=== PATIENT | male | born 1950 | race Caucasian/White ===

== ENCOUNTER → 2018-01-26 11:48 | Outpatient (CLI) | payer OTHER, MEDICARE, SELFPAY ==
[2018-01-26 14:17] LABS: AST(SGOT) 70 U/L (15-37); Alanine Aminotransfer ALT/SGPT 110 U/L (16-61); Anion Gap 5 (5-15); BUN 18 mg/dL (7-18); BUN/Creat Ratio 18.8 RATIO (10-20); Calcium,Total 9.3 mg/dL (8.5-10.1); Chloride 106 mmol/L (98-107); Cholesterol 176 mg/dL (200); Creatinine, Serum 0.96 mg/dL (0.70-1.30); EST Glomerular Filtration Rate 83 mL/min (>60); Est Glom Filt Rate - Afr Amer 100 mL/min (>60); Glucose 104 mg/dL (74-106); High Density Lipoprotein 32 mg/dL; Potassium 4.4 mmol/L (3.5-5.1); Sodium Level 140 mmol/L (136-145); Triglycerides 166 mg/dL; Very Low Density Lipoprotein 33 mg/dL (5-40)
== END ==
PROVIDERS: Family Provider Family Medicine; PCP Family Medicine; Visit Provider Family Medicine
DX: I10 Essential (primary) hypertension (principal); E78.5 Hyperlipidemia, unspecified
CPT/HCPCS: 36415; 80048; 80061; 84450; 84460

== ENCOUNTER → 2018-02-07 12:28 | Outpatient (CLI) | payer MEDICARE, OTHER, SELFPAY | PROVIDERS: Family Provider Family Medicine; PCP Family Medicine; Visit Provider Urology | DX: Z12.5 Encounter for screening for malignant neoplasm of prostate (principal) | CPT/HCPCS: 36415; 84153; G0103 ==

== ENCOUNTER → 2018-02-28 11:37 | Outpatient (CLI) | payer MEDICARE, OTHER, SELFPAY ==
[2018-02-28 12:40] LABS: AST(SGOT) 73 U/L (15-37); Alanine Aminotransfer ALT/SGPT 107 U/L (16-61); Albumin, Serum 3.7 g/dL (3.2-5.0); Alkaline Phosphatase 54 U/L (45-117); Anion Gap 7 (5-15); BUN 12 mg/dL (7-18); Bilirubin, Direct 0.17 mg/dL (0.00-0.30); Calcium,Total 9.2 mg/dL (8.5-10.1); Chloride 107 mmol/L (98-107); Cholesterol 237 mg/dL (200); EST Glomerular Filtration Rate 79 mL/min (>60); Est Glom Filt Rate - Afr Amer 95 mL/min (>60); Globulin 4.2 g/dL (2.2-4.2); Glucose 92 mg/dL (74-106); High Density Lipoprotein 30 mg/dL; Potassium 4.4 mmol/L (3.5-5.1); Protein, Total 7.9 g/dL (6.4-8.2); Sodium Level 141 mmol/L (136-145); Triglycerides 265 mg/dL; Very Low Density Lipoprotein 53 mg/dL (5-40)
== END ==
PROVIDERS: Family Provider Family Medicine; PCP Family Medicine; Visit Provider Family Medicine
DX: I10 Essential (primary) hypertension (principal); E78.5 Hyperlipidemia, unspecified
CPT/HCPCS: 36415; 80048; 80061; 80076

== ENCOUNTER → 2018-03-26 14:55 | Outpatient (CLI) | payer MEDICARE, OTHER, SELFPAY ==
[2018-03-26 16:05] LABS: AST(SGOT) 63 U/L (15-37); Alanine Aminotransfer ALT/SGPT 86 U/L (16-61); Cholesterol 176 mg/dL (200); High Density Lipoprotein 33 mg/dL; Triglycerides 207 mg/dL; Very Low Density Lipoprotein 41 mg/dL (5-40)
== END ==
PROVIDERS: Family Provider Family Medicine; PCP Family Medicine; Visit Provider Family Medicine
DX: E78.00 Pure hypercholesterolemia, unspecified (principal)
CPT/HCPCS: 36415; 80061; 84450; 84460

== ENCOUNTER → 2018-06-25 09:26 | Outpatient (CLI) | payer MEDICARE, OTHER, SELFPAY ==
[2018-06-25 10:51] LABS: AST(SGOT) 41 U/L (15-37); Alanine Aminotransfer ALT/SGPT 77 U/L (16-61); Cholesterol 169 mg/dL (200); High Density Lipoprotein 32 mg/dL; Triglycerides 252 mg/dL; Very Low Density Lipoprotein 50 mg/dL (5-40)
--- OUTSIDE RECORDS SUMMARY | 2018-09-26 21:43 | XMS RPT_ITS ---
:1950 Author Organization [facility] Care Team Providers Name Role Phone Skip Willis Attending Unavailable Jolliff, Estefania Referring Unavailable Jolliff, Estefania Primary Care Unavailable Jolliff, Estefania Attending Unavailable Jolliff, Estefania Primary Care Unavailable Jolliff, Estefania Referring Unavailable Jolliff, Estefania Attending Unavailable Jolliff, Etsefania Primary Care Unavailable Osmel Ford Attending Unavailable Osmel Ford Referring Unavailable Jolliff, Estefania Primary Care Unavailable Jolliff, Estefania Attending Unavailable Jolliff, Estefania Primary Care Unavailable Jolliff, Estefania Attending Unavailable Jolliff, Estefania Referring Unavailable Jolliff, Estefania Primary Care Unavailable Luciana Patterson Attending Unavailable Jolliff, Estefania Attending Unavailable Jolliff, Estefania Primary Care Unavailable PROBLEMS PROBLEMS DATE TYPE CONDITION / CODE ATTENDING STATUS SOURCE 02/20/2018 Unknown I10 - Essential Estefania Santana Active [facility] (primary) [facility]ly [facility] hypertension / Hospital I10(ICD-10) Repository PROCEDURES PROCEDURES No Procedure Records FoundRESULTS RESULTS HIP, UNI W/ PELVIS Observed: 07/31/2018 Status: F Source: [place] 2-3 VIEWS 2:05 PM [facility] [place] [facility] Imaging Services [address] [place] [address] HIP, UNI W/ Pelvis 2-3 Views MR#: [id number] Acct: [id number] Name: KATHLEEN ANGELA Rep #: [id number] : 1950 M 68 From: Sekou Mendoza MD PCP: Estefania Santana MD Status: REG CLI Study: HIP, UNI W/ Pelvis 2-3 Views Date of Exam: 07/31/18 Exam# [id number] Ordering Dr: Estefania Santana MD STUDY: X-RAY - LEFT HIP REASON FOR EXAM: Male, 68 years old. Left hip pain. TECHNIQUE: 2 views of the hip. COMPARISON: None. FINDINGS: Calcified phleboliths. Normal femoral head, neck, intertrochanteric region and visualized proximal femur. 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 There is moderate articular joint space narrowing. Normal visualized superior and inferior pubic rami and ischial tuberosities. RAD/HIP, UNI W/ Pelvis 2-3 Views IMPRESSION: Degenerative changes of the hip. Electronically Signed: Sekou Mendoza MD at 13:31 EST , Service support , CC: Estefania Santana MD Weight Count Operator: Signed LIPID PROFILE Collected: 06/25/2018 Status: F Source: [place] 9:36 AM [facility] [place] [facility] Order Comment: Order Date: 03/29/18 Order Info: [id number] - LIPID Order Info: 1920-02 - AST Order Info: 1741-12 - ALT TYPE CODE TESTS RESULT OUT OF RANGE REFERENCE UNITS LAB L501.4900 200 mg/dL Normal CHOL 169 Result Comment: <200 mg/dL Desirable 200-240 mg/dL Borderline >240 mg/dL High Risk LAB L501.5000 mg/dL High TRIG 252 Result Comment: The drugs N-Acetylcysteine and Metamizole may falsely depress this assay. Serum Triglycerides Reference Interval Normal <150 mg/dL Borderline high 150 - 199 mg/dL High 200 - 499 mg/dL Very High > or = 500 mg/dL LAB L501.6400 mg/dL Low HDL 32 Result Comment: The drugs N-Acetylcysteine and Metamizole may falsely depress this assay. Reference Range HDL <40 mg/dL Low HDL Cholesterol HDL >or= 60 mg/dL High HDL Cholesterol LAB L501.6500 0-130 mg/dL Normal LDL 87 LAB L501.6600 5-40 mg/dL High VLDL 50 Performed By: #### L500.4100, L501.4100, L501.4405 #### [facility] [address] [place], [place], [id number] AST(SGOT) Collected: 06/25/2018 Status: F Source: [place] 9:36 AM [facility] [facility] Order Comment: Order Date: 03/29/18 Order Info: [id number] - LIPID Order Info: 1920-02 - AST Order Info: 1741-12 - ALT TYPE CODE TESTS RESULT OUT OF RANGE REFERENCE UNITS LAB L501.4100 15-37 U/L High AST 41 Performed By: #### L500.4100, L501.4100, L501.4405 #### [facility] [address] [place], [place], [id number] ALANINE AMINOTRANSFERAS Collected: 06/25/2018 Status: F Source: [place] (SGPT) 9:36 AM [facility] [place] [facility] Order Comment: Order Date: 03/29/18 Order Info: [id number] - LIPID Order Info: 1920-02 - AST Order Info: 1741-12 - ALT TYPE CODE TESTS RESULT OUT OF RANGE REFERENCE UNITS LAB L501.4405 16-61 U/L High ALT 77 Performed By: #### L500.4100, L501.4100, L501.4405 #### [facility] [address] [place], [place], [address] LIPID PROFILE Collected: 03/26/2018 Status: F Source: [place] 3:15 PM [facility] [place] [facility] Order Comment: Order Date: 03/02/18 Order Info: [id number] - LIPID Order Info: 1920-02 - AST Order Info: 1741-12 - ALT TYPE CODE TESTS RESULT OUT OF RANGE REFERENCE UNITS LAB L501.4900 200 mg/dL Normal CHOL 176 Result Comment: <200 mg/dL Desirable 200-240 mg/dL Borderline >240 mg/dL High Risk LAB L501.5000 mg/dL High TRIG 207 Result Comment: The drugs N-Acetylcysteine and Metamizole may falsely depress this assay. Serum Triglycerides Reference Interval Normal <150 mg/dL Borderline high 150 - 199 mg/dL High 200 - 499 mg/dL Very High > or = 500 mg/dL LAB L501.6400 mg/dL Low HDL 33 Result Comment: The drugs N-Acetylcysteine and Metamizole may falsely depress this assay. Reference Range HDL <40 mg/dL Low HDL Cholesterol HDL >or= 60 mg/dL High HDL Cholesterol LAB L501.6500 0-130 mg/dL Normal LDL 102 LAB L501.6600 5-40 mg/dL High VLDL 41 Performed By: #### L500.4100, L501.4100, L501.4405 #### [facility] [address] [place], [address] AST(SGOT) Collected: 03/26/2018 Status: F Source: [place] 3:15 PM [facility] [facility] Order Comment: Order Date: 03/02/18 Order Info: [id number] - LIPID Order Info: 1920-02 - AST Order Info: 1741-12 - ALT TYPE CODE TESTS RESULT OUT OF RANGE REFERENCE UNITS LAB L501.4100 15-37 U/L High AST 63 Result Comment: Moderate Hemolysis, Result may be falsely increased. Performed By: #### L500.4100, L501.4100, L501.4405 #### [facility] [address] [place], [address] ALANINE AMINOTRANSFERAS Collected: 03/26/2018 Status: F Source: [place] (SGPT) 3:15 PM [facility] Order Comment: Order Date: 03/02/18 Order Info: [id number] - LIPID Order Info: 1920-02 - AST Order Info: 174-6 - ALT TYPE CODE TESTS RESULT OUT OF RANGE REFERENCE UNITS LAB L501.4405 16-61 U/L High ALT 86 Performed By: #### L500.4100, L501.4100, L501.4405 #### [facility] [address] [place], [address] BASIC METABOLIC Collected: 02/28/2018 Status: F Source: [place] PROFILE (BMP) 11:45 AM [facility] [facility] Order Comment: Order Date: 01/26/18 Order Info: 0667-1 - BMP Order Date: 01/29/18 Order Info: 0788-1 - LIVER Order Info: 96029-8 - LIPID Order Info: 1920-02 - AST Order Info: 1746 - ALT TYPE CODE TESTS RESULT OUT OF RANGE REFERENCE UNITS LAB L501.0100 74-106 mg/dL Normal GLU 92 Result Comment: Please note revised GLUCOSE reference range effective 2017. LAB L501.1000 7-18 mg/dL Normal BUN 12 LAB L501.1100 0.70-1.30 mg/dL Normal CREAT,SERUM 1.00 Result Comment: The validity of the calculated GFR AND GFRAA in patients over 70 years has not been determined. Clinical correlation is essential. LAB L501.1110 >60 mL/min Normal EST GFR 79 Result Comment: Non- GFR Calc LAB L501.1115 >60 mL/min Normal EST GFR - AA 95 Result Comment: GFR Calc LAB L501.1300 10-20 RATIO Normal BUN/CRE 12.0 LAB L501.2200 8.5-10.1 mg/dL CA Normal 9.2 LAB L501.5300 136-145 mmol/L NA Normal 141 LAB L501.5600 3.5-5.1 mmol/L K Normal 4.4 Result Comment: Slight Hemolysis, Result may be falsely increased. LAB L501.5900 98-107 mmol/L Normal CL 107 LAB L501.6100 21.0-32.0 mmol/L Normal CO2 27.0 LAB L501.6200 5-15 Normal 7 GAP Performed By: #### L500.2500, L500.4100 #### [facility] [address] [place], [place], [address] LIPID PROFILE Collected: 02/28/2018 Status: F Source: [place] 11:45 AM [facility] [facility] Order Comment: Order Date: 01/26/18 Order Info: 0667- - BMP Order Date: 01/29/18 Order Info: 0788 - LIVER Order Info: [id number] - LIPID Order Info: 1920-02 - AST Order Info: 17408-15 - ALT TYPE CODE TESTS RESULT OUT OF RANGE REFERENCE UNITS LAB L501.4900 200 mg/dL High CHOL 237 Result Comment: <200 mg/dL Desirable 200-240 mg/dL Borderline >240 mg/dL High Risk LAB L501.5000 mg/dL High TRIG 265 Result Comment: The drugs N-Acetylcysteine and Metamizole may falsely depress this assay. Serum Triglycerides Reference Interval Normal <150 mg/dL Borderline high 150 - 199 mg/dL High 200 - 499 mg/dL Very High > or = 500 mg/dL LAB L501.6400 mg/dL Low HDL 30 Result Comment: The drugs N-Acetylcysteine and Metamizole may falsely depress this assay. Reference Range HDL <40 mg/dL Low HDL Cholesterol HDL >or= 60 mg/dL High HDL Cholesterol LAB L501.6500 0-130 mg/dL High LDL 154 LAB L501.6600 5-40 mg/dL High VLDL 53 Performed By: #### L500.2500, L500.4100 #### [facility] [address] [place], [place], [address] LIVER PROFILE Collected: 02/28/2018 Status: F Source: [place] 11:45 AM [facility] [place] [facility] Order Comment: Order Date: 01/26/18 Order Info: 0667 - BMP Order Date: 01/29/18 Order Info: 07 - LIVER Order Info: [id number] - LIPID Order Info: 08 - AST Order Info: 1742-6 - ALT TYPE CODE TESTS RESULT OUT OF RANGE REFERENCE UNITS LAB L501.1500 6.4-8.2 g/dL Normal T PROT 7.9 LAB L501.1800 3.2-5.0 g/dL Normal ALB 3.7 LAB L501.1950 2.2-4.2 g/dL Normal GLOB 4.2 LAB L501.4100 15-37 U/L High AST 73 Result Comment: Slight Hemolysis, Result may be falsely increased. LAB L501.4305 45-117 U/L Normal ALK P 54 LAB L501.4405 16-61 U/L High ALT 107 LAB L501.4600 0.20-1.00 mg/dL Normal T BILI 0.90 LAB L501.4700 0.00-0.30 mg/dL Normal D BILI 0.17 Performed By: #### L500.3400 #### [facility] [address] [place], [address] CARDIOLOGY VISIT Observed: 02/07/2018 Status: F Source: [place] REPORT 3:17 PM [facility] [place] [facility] [address] [place] [address] OFFICE VISIT Date of Service: 02/07/18 MR#: [id number] Acct: [id number] Name: KATHLEEN ANGELA Rep #: [id number] : 1950 Provider: Skip Willis MD Age/Sex: 67/M Location: [facility] [place] Status: Signed HPI HPI Details: KATHLEEN ANGELA, is a 67 M who presents to the office today for for outpatient cardiovascular follow-up of his history of hypertension and hyperlipidemia superimposed upon obstructive sleep apnea. He notes overall since his last outpatient cardiovascular visit he has been doing well. He denies any concerning symptoms of angina pectoris or evidence of CHF or pulmonary edema. There has been no near syncope or syncope. He states he had his lipid labs checked recently. They were checked on 01/26/2018. It was noted to the same time his AST and ALT were elevated. He notes his primary care physician placed his statin on hold pending a follow-up hepatic profile in the near future. Intake Vital Signs02/07/18 Height 5 ft 11 in 02/07/18 Weight: 276 lb 02/07/18 Body Mass Index (BMI) 38.5 02/07/18 Blood Pressure 120/74 Intake Visit Reasons: 6 M FU Allergies JEFF Inhibitors Adverse Reaction (Severe, Verified 02/07/18 14:41) cough Medications losartan 25 mg tablet 25 mg PO QDAY #90 tab 07/17/17 [Rx Confirmed 02/07/18] oxybutynin chloride ER 10 mg tablet,extended release 24 hr 10 mg PO QDAY #90 tab 07/17/17 [Rx Confirmed 02/07/18] amlodipine 5 mg tablet 5 mg PO QDAY 02/06/18 [History Confirmed 02/07/18] aspirin 81 mg tablet,delayed release 81 mg PO QDAY 02/06/18 [History Confirmed 02/07/18] omega-3 fatty acids 1,000 mg capsule 1,000 mg PO QDAY 02/06/18 [History Confirmed 02/07/18] cetirizine 10 mg tablet 10 mg PO QDAY PRN tab 02/07/18 [History Confirmed 02/07/18] multivitamin tablet 1 tab PO QDAY 02/07/18 [History Confirmed 02/07/18] [facility] Medical History ISIAH (obstructive sleep apnea) (Chronic) Hyperlipidemia (Chronic) Hypertension (Chronic) Surgical History History of carpal tunnel repair (Resolved) History of cholecystectomy (Resolved) History of knee replacement procedure of left knee (Resolved) History of knee replacement procedure of right knee (Resolved) History of vasectomy (Resolved) Status post laser cataract surgery of right eye (Resolved) Social History Smoking Status: Former smoker alcohol intake: never ROS Const Const: Negative for fatigue, weakness, weight gain, weight loss, frequent falls or excessive sweating Eyes Eyes: Negative for change in vision, blurry vision or transient loss of vision ENT ENT: Negative for dizziness or balance problems Cardio Chest Pain: No Palpitations: Yes (occasional) feels like its: skipping Edema: Bilateral (slight) Muscle aches with walking: None Additional Details: Patient reports neuropathy Bilat LE, notes tingling in bilat pedals. Resp Respiratory: Positive for SOB with activity (slight); negative for SOB at rest GI GI: Negative vomiting or vomiting blood/hematemesis : Negative for hematuria Musc Musc: Negative for balance problems, muscle aches/ myalgia, muscle weakness or joint pain Skin Skin: Negative non-healing lesions or rash Neuro Neuro: Negative for weakness, blurry vision, dizziness, lightheadedness, frequent falls or orthostatic symptoms Anderson Hematologic/Lymphatic: Negative for easy bleeding Endo Endo: Negative for fatigue or excessive sweating Psych Psych: Negative for anxiety or depression Allergy Allergy/Immunology: Negative for hives, Negative for rash Cardiology Exam Const Appearance: cooperative, comfortable, no acute distress, healthy appearing, well developed and well groomed Nutritional Appearance: overweight Orientation: alert, awake and oriented x3 Head Head: normal to inspection, normocephalic and atraumatic Ears: hearing grossly normal bilaterally Nose: external nose normal Face and Sinus: face symmetric Mouth: oral mucosae normal Teeth and gingiva: fair dentition Eyes Eyelids: eyelids normal Conjunctivae: conjunctivae normal Pupils: PERRL EOM: EOM intact bilaterally Neck Neck: normal visual inspection and full ROM Carotids: normal carotid upstroke Chest Chest inspection: normal inspection of the chest and symmetric chest movement Auscultation: Bilateral: Clear to Auscultation Cardio Palpation: normal PMI Rate: regular rate Rhythm: regular rhythm Heart sounds: S1 normal and S2 normal GI GI: normal to inspection, bowel sounds present and soft Neuro General: alert, awake, oriented x3 and moves all extremities Skin Skin: no rashes or lesions noted Extremities Pulses: Normal: Right Radial Pulse, Left Radial Pulse Lower Extremity Edema: None: Bilateral Psych Psychological: normal affect Supplemental Info He did have a transthoracic echocardiogram done on 03/15/2013. At that time the results are as noted below. Interpretation Summary Left ventricular systolic function is normal. The estimated ejection fraction is 60 %. The left atrium is mildly enlarged. There is mild to moderate mitral annular calcification. Trivial mitral valve insufficiency. Trivial tricuspid valve insufficiency. Mild focal aortic valve thickening. Right ventricular systolic pressure estimated to be 36 mmHg. He had a stress test performed on 03/01/2013. The results are as noted below. EXERCISE TOLERANCE TEST: The patient exercised on a Kumar protocol for 6 minutes achieving a peak heart rate of 164 beats per minute (104% predicted maximum heart rate) and a peak blood pressure of 160/78 mmHg and a peak MET capacity of approximately 7 METs. The baseline ECG demonstrated normal sinus rhythm. The peak exercise ECG demonstrated somatic/motion artifact with no obvious ECG changes. There were no obvious cardiac dysrhythmias pretest, during exercise or recovery. The functional capacity was considered average. The patient had no complaint of chest discomfort during exercise or recovery. The examination was discontinued secondary to dyspnea and leg fatigue. IMPRESSION: 1. Technically adequate (percent predicted maximum heart rate greater than 85%) exercise tolerance test. 2. Peak exercise ECG with somatic/motion artifact with no obvious ECG changes. 3. Nuclear images pending. MYOCARDIAL PERFUSION IMAGING STUDY: TECHNIQUE: The patient was injected with 14.5 mCi of Tc99m Cardiolite and subsequently rest SPECT Cardiolite nuclear imaging was obtained in the horizontal long, vertical long and short axes views. The patient exercised on a Kumar protocol for 6 minutes achieving a peak heart rate of 164 beats per minute (104% predicted maximum heart rate) and a peak blood pressure of 160/78 mmHg and a peak MET capacity of 7 METs. The patient was injected with 44.7 mCi of Tc99m Cardiolite and subsequently stress SPECT Cardiolite nuclear imaging was obtained in the horizontal long, vertical long, and short axes views, Gated Cardiolite study at peak stress was obtained. INTERPRETATION: Rest and stress SPECT Cardiolite nuclear imaging both demonstrate areas of diminished tracer uptake in portions of the very basal inferoseptal/inferior segments. However, following stress these areas appear to be somewhat more prominent with respect to the basal inferior septal/inferior and inferolateral segments. There is end systolic thickening and brightening. The gated Cardiolite study demonstrates myocardial thickening and inward wall motion. The reported LVEF is 62%. The aforementioned changes maybe compatible with shifting soft tissue/diaphragmatic attenuation artifact, however, an element of myocardial ischemia in the aforementioned segments cannot necessarily be excluded. IMPRESSION: 1. Rest and stress SPECT Cardiolite nuclear imaging demonstrate myocardial perfusion changes potentially compatibfe with shifting soft tissue/diaphragmatic attenuation. However, an element of myocardial ischemia in portions of the basal towards mid inferior septal/inferior and inferolateral segments cannot necessarily be excluded. 2. The gated Cardiolite study reports an LVEF of 62%. He had a diagnostic cardiac catheterization performed at [facility] on 03/20/2013. The results are as noted below. 1. Elevated left ventricle are end-diastolic pressure compatible decreased diastolic compliance 2. Left ventricle: A. normal left ventricle size, wall motion, and systolic function B. Estimated LVEF is 65% 3. Left main coronary: A. Angiographically normal 4. Left anterior descending coronary artery: A. Angiographically normal 5. Left circumflex coronary artery: A. Large codominant vessel B. Angiographically normal 6. Right coronary artery: A. Moderate size codominant vessel B. Mid minimal luminal irregularities Assessment AND Plan 1. Hyperlipidemia, unspecified hyperlipidemia type E78.5 Plan At the present time he will continue his current risk factor moderate medical management. However this does include temporary hold of his statin therapy. Hopefully his follow-up hepatic studies will have improved. If they have improved then perhaps he can be rechallenged with his statin at a lower dose or an alternative statin to hopefully maximize his cardiovascular risk factors. If they do not improve then this does raise a concern that there may be another etiology for his hepatic transaminase elevation other than his statin therapy. Then he may need further gastrointestinal evaluation. 2. Essential hypertension I10 Plan His blood pressure appears to be well controlled today. He will continue his current medical management and follow-up. 3. ISIAH (obstructive sleep apnea) G47.33 Plan He does have a history of obstructive sleep apnea. He will continue to follow with his other physicians for this. Plan Detail Additional Comments Otherwise he will be scheduled for an outpatient visit approximately 1 year unless needed sooner. Thank you for allowing me to participate in the care of your patient. Please don't hesitate to call if any issues arise. This note was generated using a voice recognition system and there may be incorrect words, spelling or punctuation that were not noted when reviewing the office note prior to saving. Follow Up 1 Year (PFM) Coding Level of Care Code Off vis,est,level 3 Diagnoses Hyperlipidemia, unspecified hyperlipidemia type E78.5 Hyperlipidemia type: unspecified Essential hypertension I10 Hypertension type: essential hypertension ISIAH (obstructive sleep apnea) G47.33 Coding Level of Care Code Off vis,est,level 3 Diagnoses Hyperlipidemia, unspecified hyperlipidemia type E78.5 Hyperlipidemia type: unspecified Essential hypertension I10 Hypertension type: essential hypertension ISIAH (obstructive sleep apnea) G47.33 02/07/18 1517 <Electronically signed by Skip Willis MD> Date [facility] Signature: Date (if applicable) CC: Estefania Santana MD PSA,TOTAL - ANNUAL Collected: 02/07/2018 Status: F Source: [place] SCREEN 1:10 PM [facility] [place] [facility] TYPE CODE TESTS RESULT OUT OF RANGE REFERENCE UNITS LAB L501.9910 0.00-4.00 ng/mL Normal PSA,TOT 0.20 SCREEN Result Comment: This test was performed using the TPSA assay method for the [employer] chemistry system. Values obtained with different assay methods cannot be used interchangably. When changing PSA assays in the course of monitoring a patient, additional sequential testing should be carried out to confirm baseline values. Performed By: #### L501.9910 #### [facility] [address] [place], [address] BASIC METABOLIC Collected: 01/26/2018 Status: F Source: [place] PROFILE (BMP) 11:49 AM [facility] [place] [facility] TYPE CODE TESTS RESULT OUT OF RANGE REFERENCE UNITS LAB L501.0100 74-106 mg/dL Normal GLU 104 Result Comment: Fasting Glucose result from 100 to 125 mg/dL suggests IMPAIRED HOMEOSTASIS per A.D.A. criteria. Please note revised GLUCOSE reference range effective 2017. LAB L501.1000 7-18 mg/dL Normal BUN 18 LAB L501.1100 0.70-1.30 mg/dL Normal CREAT,SERUM 0.96 Result Comment: The validity of the calculated GFR AND GFRAA in patients over 70 years has not been determined. Clinical correlation is essential. LAB L501.1110 >60 mL/min Normal EST GFR 83 Result Comment: Non- GFR Calc LAB L501.1115 >60 mL/min Normal EST GFR - AA 100 Result Comment: GFR Calc LAB L501.1300 10-20 RATIO Normal BUN/CRE 18.8 LAB L501.2200 8.5-10.1 mg/dL CA Normal 9.3 LAB L501.5300 136-145 mmol/L NA Normal 140 LAB L501.5600 3.5-5.1 mmol/L K Normal 4.4 LAB L501.5900 98-107 mmol/L CL Normal 106 LAB L501.6100 21.0-32.0 mmol/L Normal CO2 29.0 LAB L501.6200 5-15 Normal GAP 5 Performed By: #### L500.2500, L500.4100, L501.4100, L501.4405 #### [facility] [address] [place], [place], [address] LIPID PROFILE Collected: 01/26/2018 Status: F Source: [place] 11:49 AM [facility] [place] [facility] TYPE CODE TESTS RESULT OUT OF RANGE REFERENCE UNITS LAB L501.4900 200 mg/dL Normal CHOL 176 Result Comment: <200 mg/dL Desirable 200-240 mg/dL Borderline >240 mg/dL High Risk LAB L501.5000 mg/dL Normal TRIG 166 Result Comment: The drugs N-Acetylcysteine and Metamizole may falsely depress this assay. Serum Triglycerides Reference Interval Normal <150 mg/dL Borderline high 150 - 199 mg/dL High 200 - 499 mg/dL Very High > or = 500 mg/dL LAB L501.6400 mg/dL Low HDL 32 Result Comment: The drugs N-Acetylcysteine and Metamizole may falsely depress this assay. Reference Range HDL <40 mg/dL Low HDL Cholesterol HDL >or= 60 mg/dL High HDL Cholesterol LAB L501.6500 0-130 mg/dL Normal LDL 111 LAB L501.6600 5-40 mg/dL Normal VLDL 33 Performed By: #### L500.2500, L500.4100, L501.4100, L501.4405 #### [facility] [address] [place], [place], [address] AST(SGOT) Collected: 01/26/2018 Status: F Source: [place] 11:49 AM [facility] [place] [facility] TYPE CODE TESTS RESULT OUT OF RANGE REFERENCE UNITS LAB L501.4100 15-37 U/L High AST 70 Performed By: #### L500.2500, L500.4100, L501.4100, L501.4405 #### [facility] [address] [place], [address] ALANINE AMINOTRANSFERAS Collected: 01/26/2018 Status: F Source: [place] (SGPT) 11:49 AM [facility] REPOSITORY TYPE CODE TESTS RESULT OUT OF RANGE REFERENCE UNITS LAB L501.4405 16-61 U/L High ALT 110 Performed By: #### L500.2500, L500.4100, L501.4100, L501.4405 #### [facility] [address] [place], [address] ALLERGIES ALLERGIES DATE TYPE / CODE NAME / CODE REACTION SEVERITY SOURCE 02/07/2018 Drug JEFF cough SV [facility] Allergy/4160 Inhibitors/F Hospital [address](SNOMED 845877873(RX Repository CT) NORM) ENCOUNTERS ENCOUNTERS ADMIT/DISCHARGE ACCOUNT ADMITTING ENCOUNTER LOCATION SOURCE NUMBER CLASS 07/31/2018 [id number] Ambulatory [place] 5 [facility] ing:MTRAD Repository 06/25/2018 [id number] Ambulatory [place] 7 [facility] ing:LAB.FUTUR Repository E 03/26/2018 [id number] Ambulatory [place] 9 [facility] ing:LAB Repository 02/28/2018 [id number] Ambulatory [place] 3 [facility] ing:LAB Repository 02/07/2018/ [id number] Ambulatory BMSBuilding:B [place] 8 [facility] Repository 02/07/2018 [id number] Ambulatory [place] 8 [facility] ing:LAB Repository 02/06/2018 [id number] Ambulatory BMSBuilding:B [place] 0 [facility] Repository 01/26/2018 [id number] Ambulatory [place] 2 [facility] ing:MFPLAB Repository PAYERS PAYERS ENCOUNTER GUARANTOR PAYER SUBSCRIBER SOURCE 07/31/2018 KATHLEEN Stahl Primary KATHLEEN Alonzo [id number] Insurance:MEDICARE FLOZZIEGANDOB: [facility] CHRIS Santosy [id number] [place] Number: Repository [address]Oin: (386) [id number] [phone] (HP) Date:2018-07-31 07/31/2018 Secondary KATHLEEN L [place] Insurance:UNITED [facility]LY [facility] HEALTH[facility]ANDOB: [facility] CARE [id number] Hospital Number: Repository [id number] Date:7299-20-49FE [address] [address]UR: 07/31/2018 Tertiary NOT GIVENUNK [place] Insurance:SELF PAY [facility] Number: Effective Repository Date:2018-07-31 06/25/2018 KATHLEEN L Primary KATHLEEN L [place] [id number] Insurance:MEDICARE [facility]: [facility] PART A [facility] [id number] [place] Number: Repository [address]: 330 [id number] [phone] (HP) Date:2018-03-30 06/25/2018 Secondary KATHLEEN L [place] Insurance:[facility]ILDREN[facility] HOSPITALGANDOB: [facility] CARE [id number] Hospital Number: Repository [id number] Date:6515-57-73[address] [address]QW: 06/25/2018 Tertiary NOT GIVENUNK [place] Insurance:SELF PAY [facility] Number: Effective Repository Date:2018-03-30 03/26/2018 KATHLEEN L Primary KATHLEEN L [place] [id number] Insurance:MEDICARE [facility]ITAL[facility]OB: [facility] PART A [facility] [id number] [place] Number: Repository [address]Wpy: 330 [id number] [phone] (HP) Date:2018-03-26 03/26/2018 Secondary KATHLEEN L [place] Insurance:[facility] HOSPITALGANDOB: [facility] CARE [id number] Hospital Number: Repository [id number] Date:3996-27-93FQ [address] [address]YB: 03/26/2018 Tertiary NOT GIVENUNK [place] Insurance:SELF PAY [facility] Number: Effective Repository Date:2018-03-26 02/28/2018 KATHLEEN L Primary KATHLEEN L [place] [id number] Insurance:MEDICARE [facility]IV[facility]AB: [facility] [address] PART A [facility] [id number]. [facility] [place] Number: Repository [id number]: 330 [id number] [phone] () Date:2018-02-28 02/28/2018 Secondary KATHLEEN L [place] Insurance:[facility]: [facility] CARE [address] [place] [address] [id number] Hospital Number: Repository [id number] Date:4599-32-28NM [address], [place] [address]LZ: 02/28/2018 Tertiary NOT GIVENUNK [place] Insurance:SELF PAY [facility] Number: Effective Repository Date:2018-02-28 02/07/2018 KATHLEEN L Primary KATHLEEN L [place] [id number] Insurance:MEDICARE [facility]: [facility] [address] PART A [facility] [id number] Francis [facility] [place] Number: Repository [id number]: 330 [id number] [phone] () Date:2017-06-27 02/07/2018 Secondary KATHLEEN L [place] Insurance:UNITED [facility]OB: [facility] CARE [id number] Hospital Number: Repository [id number] Date:2225-69-77RU [address], [place] [address]TQ: 02/07/2018 Tertiary NOT GIVENUNK [place] Insurance:SELF PAY [facility] Number: Effective Repository Date:2017-06-27 02/07/2018 KATHLEEN L Primary KATHLEEN L [place] [id number] Insurance:MEDICARE [facility]IV[facility]AB: [facility] [address] PART A [facility] [id number] Francis Hospital [facility] [place] Number: Repository [id number]: 330 [id number] [phone] (HP) Date:2018-02-07 02/07/2018 Secondary KATHLEEN L [place] Insurance:[facility] HOSPITALGANDOB: [facility] CARE [id number] [id number] Hospital Number: Repository [id number] Date:9432-50-80[address] [address]WC: 02/07/2018 Tertiary NOT GIVENUNK [place] Insurance:SELF PAY [facility] Number: Effective Repository Date:2018-02-07 02/06/2018 KATHLEEN L Primary KATHLEEN L [place] [id number] Insurance:[facility]EN[facility] HOSPITALGANDOB: [facility] [place] CARE [id number] Francis [facility] [place] Number: Repository [id number]: 330 [id number] [phone] (HP) Date:4436-31-35[address] [address]NB: 02/06/2018 Secondary NOT GIVENUNK [place] Insurance:SELF PAY [facility] Number: Effective Repository Date:2018-02-06 01/26/2018 KATHLEEN L Primary KATHLEEN L [place] [id number] Insurance:[facility]ENTERB: [facility] CARE [id number] [id number]. Anthony Hospital [facility] [place] Number: Repository [address]Sde: 330 [id number] [phone] (HP) Date:5034-92-04CN [address] [place] [address]BH: 01/26/2018 Secondary KATHLEEN L [place] Insurance:MEDICARE FLANNAGANDOB: Community PART A [facility] [id number] Hospital Number: Repository [id number] Date:2018-01-26 01/26/2018 Tertiary NOT GIVENUNK [place] Insurance:SELF PAY [facility] Number: Effective Repository Date:2018-01-26
== END ==
PROVIDERS: Family Provider Family Medicine; PCP Family Medicine; Referring Provider Family Medicine; Visit Provider Family Medicine
DX: E78.00 Pure hypercholesterolemia, unspecified (principal)
CPT/HCPCS: 36415; 80061; 84450; 84460

== ENCOUNTER → 2018-07-31 14:01 | Outpatient (CLI) | payer MEDICARE, OTHER, SELFPAY ==
--- NOTE | 2018-07-31 14:05 | RAD_ITS ---
STUDY: X-RAY - LEFT HIP REASON FOR EXAM: Male, 68 years old. Left hip pain. TECHNIQUE: 2 views of the hip. COMPARISON: None. FINDINGS: Calcified phleboliths. Normal femoral head, neck, intertrochanteric region and visualized proximal femur. 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 There is moderate articular joint space narrowing. Normal visualized superior and inferior pubic rami and ischial tuberosities. RAD/HIP, UNI W/ Pelvis 2-3 Views IMPRESSION: Degenerative changes of the hip. Electronically Signed: Sekou Mendoza MD at 13:31 EST , Service support ,
--- OUTSIDE RECORDS SUMMARY | 2018-10-02 19:29 | XMS RPT_ITS ---
:1950 Author Organization OHIP Care Team Providers Name Role Phone Estefania Santana Attending Unavailable Jolliff, Estefania Referring Unavailable Jolliff, Estefania Primary Care Unavailable Skip Willis Attending Unavailable Jolliff, Estefania Referring Unavailable Jolliff, Estefania Primary Care Unavailable Jolliff, Estefania Attending Unavailable Jolliff, Estefania Primary Care Unavailable Luciana Patterson Attending Unavailable Osmel Ford Attending Unavailable Osmel Ford Referring Unavailable Jolliff, Estefania Primary Care Unavailable Jolliff, Estefania Attending Unavailable Jolliff, Estefania Primary Care Unavailable Jolliff, Estefania Attending Unavailable Jolliff, Estefania Primary Care Unavailable Jolliff, Estefania Attending Unavailable Jolliff, Estefania Primary Care Unavailable Jolliff, Estefania Referring Unavailable PROBLEMS PROBLEMS DATE TYPE CONDITION / CODE ATTENDING STATUS SOURCE 02/20/2018 Unknown I10 - Essential Estefania Santana Active [place] (primary) [facility] hypertension / Hospital I10(ICD-10) Repository PROCEDURES PROCEDURES No Procedure Records FoundRESULTS RESULTS HIP, UNI W/ PELVIS Observed: 07/31/2018 Status: F Source: [place] 2-3 VIEWS 2:05 PM [facility] REPOSITORY [facility] Imaging Services [address] [place] [address] HIP, UNI W/ Pelvis 2-3 Views MR#: [id number] Acct: [id number] Name: KATHLEEN ANGELA Rep #: [id number] : 1950 M 68 From: Sekou Mendoza MD PCP: Estefania Santana MD Status: REG CLI Study: HIP, UNI W/ Pelvis 2-3 Views Date of Exam: 07/31/18 Exam# [id number] Ordering Dr: Estefania Santana MD STUDY: X-RAY [...] Service support , CC: Estefania Santana MD English Lecturer: Signed LIPID PROFILE Collected: 06/25/2018 Status: F Source: [place] 9:36 AM [facility] REPOSITORY Order Comment: Order Date: 03/29/18 Order Info: 80183-8 - LIPID Order Info: 1920-02 - AST [...] Performed By: #### L500.4100, L501.4100, L501.4405 #### [facility] [address] [place], [place], [address] AST(SGOT) Collected: 06/25/2018 Status: F Source: [place] 9:36 AM [facility] REPOSITORY Order Comment: Order Date: 03/29/18 Order Info: [id number] - LIPID Order Info: 1920-02 - AST Order Info: 1741-12 - ALT TYPE CODE TESTS RESULT OUT OF RANGE REFERENCE UNITS LAB L501.4100 15-37 U/L High AST 41 Performed By: #### L500.4100, L501.4100, L501.4405 #### [facility] [address] [place], [place], [address] ALANINE AMINOTRANSFERAS Collected: 06/25/2018 Status: F Source: [place] (SGPT) 9:36 AM [facility] REPOSITORY Order Comment: Order Date: 03/29/18 Order Info: [id number] - LIPID Order Info: 1920-02 - AST Order Info: 1741-12 - ALT TYPE CODE TESTS RESULT OUT OF RANGE REFERENCE UNITS LAB L501.4405 16-61 U/L High ALT 77 Performed By: #### L500.4100, L501.4100, L501.4405 #### [facility] [address] [place], [place], [address] LIPID PROFILE Collected: 03/26/2018 Status: F Source: [place] 3:15 PM [facility] REPOSITORY Order Comment: Order Date: 03/02/18 Order Info: [id number] - LIPID Order Info: 1920-02 - AST [...] Performed By: #### L500.4100, L501.4100, L501.4405 #### [facility] [address] [place], [address] AST(SGOT) Collected: 03/26/2018 Status: F Source: [place] 3:15 PM [facility] REPOSITORY Order Comment: Order Date: 03/02/18 Order Info: [id number] - LIPID Order Info: 1920-02 - AST Order Info: 1741-12 - ALT TYPE CODE TESTS RESULT OUT OF RANGE REFERENCE UNITS LAB L501.4100 15-37 U/L High AST 63 Result Comment: Moderate Hemolysis, Result may be falsely increased. Performed By: #### L500.4100, L501.4100, L501.4405 #### [facility] [address] [place], [address] ALANINE AMINOTRANSFERAS Collected: 03/26/2018 Status: F Source: [place] (SGPT) 3:15 PM [facility] REPOSITORY Order Comment: Order Date: 03/02/18 Order Info: 43224-0 - LIPID Order Info: 1920-02 - AST Order Info: 174-6 - ALT TYPE CODE TESTS RESULT OUT OF RANGE REFERENCE UNITS LAB L501.4405 16-61 U/L High ALT 86 Performed By: #### L500.4100, L501.4100, L501.4405 #### [facility] [address] [place], [address] BASIC METABOLIC Collected: 02/28/2018 Status: F Source: [place] PROFILE (BMP) 11:45 AM [facility] REPOSITORY Order Comment: Order Date: 01/26/18 Order Info: 0667-1 - BMP Order Date: 01/29/18 Order Info: 0788-1 - LIVER Order Info: 08922-4 - LIPID Order Info: 1920-02 - AST [...] GAP Performed By: #### L500.2500, L500.4100 #### [facility] [address] [place], [place], [address] LIPID PROFILE Collected: 02/28/2018 Status: F Source: [place] 11:45 AM [facility] REPOSITORY Order Comment: Order Date: 01/26/18 Order Info: 0667- - BMP Order Date: 01/29/18 Order Info: 0788 - LIVER Order Info: 52217-8 - LIPID Order Info: 1920-02 - AST [...] 53 Performed By: #### L500.2500, L500.4100 #### [facility] [address] [place], [place], [address] LIVER PROFILE Collected: 02/28/2018 Status: F Source: [place] 11:45 AM [facility] REPOSITORY Order Comment: Order Date: 01/26/18 Order Info: 0667 - BMP Order Date: 01/29/18 Order Info: 07 - LIVER Order Info: 45610-1 - LIPID Order Info: 08 - AST [...] BILI 0.17 Performed By: #### L500.3400 #### [facility] [address] [place], [address] CARDIOLOGY VISIT Observed: 02/07/2018 Status: F Source: [place] REPORT 3:17 PM [facility] REPOSITORY [facility] [address] [place] [address] OFFICE VISIT Date of Service: 02/07/18 MR#: [id number] Acct: [id number] Name: KATHLEEN ANGELA Rep #: [id number] : 1950 Provider: Skip Willis MD Age/Sex: 67/M Location: [facility] Status: Signed HPI HPI Details: KATHLEEN ANGELA, [...] tab PO QDAY 02/07/18 [History Confirmed 02/07/18] [facility] Medical History ISIAH (obstructive sleep apnea) [...] had a diagnostic cardiac catheterization performed at [facility] on 03/20/2013. The results are [...] Skip Willis MD> Date Skip Willis [facility] Signature: Date (if applicable) CC: Estefania Santana MD PSA,TOTAL - ANNUAL Collected: 02/07/2018 Status: F Source: [place] SCREEN 1:10 PM [facility] REPOSITORY TYPE CODE TESTS RESULT OUT OF RANGE REFERENCE UNITS LAB L501.9910 0.00-4.00 ng/mL Normal PSA,TOT 0.20 SCREEN Result Comment: This test was performed using the TPSA assay method for the iSECUREtrac chemistry system. Values obtained with different assay methods cannot be used interchangably. When changing PSA assays in the course of monitoring a patient, additional sequential testing should be carried out to confirm baseline values. Performed By: #### L501.9910 #### [facility] [address] [place], [address] BASIC METABOLIC Collected: 01/26/2018 Status: F Source: [place] PROFILE (BMP) 11:49 AM [facility] REPOSITORY TYPE CODE TESTS RESULT OUT OF [...] By: #### L500.2500, L500.4100, L501.4100, L501.4405 #### [facility] [address] [place], [place], [address] LIPID PROFILE Collected: 01/26/2018 Status: F Source: [place] 11:49 AM [facility] REPOSITORY TYPE CODE TESTS RESULT OUT OF [...] By: #### L500.2500, L500.4100, L501.4100, L501.4405 #### [facility] [address] [place], [place], [address] AST(SGOT) Collected: 01/26/2018 Status: F Source: [place] 11:49 AM [facility] REPOSITORY TYPE CODE TESTS RESULT OUT OF RANGE REFERENCE UNITS LAB L501.4100 15-37 U/L High AST 70 Performed By: #### L500.2500, L500.4100, L501.4100, L501.4405 #### [facility] [address] [place], [address] ALANINE AMINOTRANSFERAS Collected: 01/26/2018 Status: F Source: [place] (SGPT) 11:49 AM [facility] REPOSITORY TYPE CODE TESTS RESULT OUT OF RANGE REFERENCE UNITS LAB L501.4405 16-61 U/L High ALT 110 Performed By: #### L500.2500, L500.4100, L501.4100, L501.4405 #### [facility] [address] [place], [address] ALLERGIES ALLERGIES DATE TYPE / CODE NAME / CODE REACTION SEVERITY SOURCE 02/07/2018 Drug JEFF cough SV [facility] Allergy/4160 Inhibitors/F Hospital [address](SNOMED 480064800(RX Repository CT) NORM) ENCOUNTERS ENCOUNTERS ADMIT/DISCHARGE ACCOUNT ADMITTING ENCOUNTER LOCATION SOURCE NUMBER CLASS 07/31/2018 [id number] Ambulatory [place] 5 [facility] ing:MTRAD Repository 06/25/2018 [id number] Ambulatory [place] 7 [facility] ing:LAB.FUTUR Repository E 03/26/2018 [id number] Ambulatory [place] 9 [facility] ing:LAB Repository 02/28/2018 [id number] Ambulatory [place] 3 [facility] ing:LAB Repository 02/07/2018/ [id number] Ambulatory BMSBuilding:B [place] 8 8 [facility] Repository 02/07/2018 [id number] Ambulatory [place] 8 [facility] ing:LAB Repository 02/06/2018 [id number] Ambulatory BMSBuilding:B [place] 0 [facility] Repository 01/26/2018 [id number] Ambulatory [place] 2 [facility] ing:MFPLAB Repository PAYERS PAYERS ENCOUNTER GUARANTOR PAYER SUBSCRIBER SOURCE 07/31/2018 KATHLEEN Stahl Primary KATHLEEN [place] [id number] Insurance:MEDICARE FLOZZIEGANDOB: [facility] CHRIS Santosy [id number] Number: Repository [id number]: (978) [id number] [phone] (HP) Date:2018-07-31 07/31/2018 Secondary KATHLEEN L [place] Insurance:[facility] HOSPITALGANDOB: [facility] CARE [id number] Hospital Number: Repository [id number] Date:0496-44-85YU [address] [address]FH: 07/31/2018 Tertiary NOT GIVENUNK [place] Insurance:SELF PAY [facility] Number: Effective Repository Date:2018-07-31 06/25/2018 KATHLEEN L Primary KATHLEEN L [place] [id number] Insurance:MEDICARE [facility]: [facility] PART A [facility] [id number], [place] Number: Repository [address]Cbg: 330 [id number] [phone] (HP) Date:2018-03-30 06/25/2018 Secondary KATHLEEN L [place] Insurance:[facility]PITAL[facility]OB: [facility] CARE [id number] [id number] Hospital Number: Repository [id number] Date:3317-22-[address] [address]TU: 06/25/2018 Tertiary NOT GIVENUNK [place] Insurance:SELF PAY [facility] Number: Effective Repository Date:2018-03-30 03/26/2018 KATHLEEN L Primary KATHLEEN L [place] [id number] Insurance:MEDICARE [facility]ENTERGANDOB: [facility] PART A [facility] [id number], [place] Number: Repository [address]Urs: 330 [id number] [phone] (HP) Date:2018-03-26 03/26/2018 Secondary KATHLEEN L [place] Insurance:[facility]PITALGANDOB: [facility] CARE [id number] Hospital Number: Repository [id number] Date:9003-20-58RL [address] [address]OP: 03/26/2018 Tertiary NOT GIVENUNK [place] Insurance:SELF PAY [facility] Number: Effective Repository Date:2018-03-26 02/28/2018 KATHLEEN L Primary KATHLEEN L [place] [id number] Insurance:MEDICARE [facility]B: [facility] [address] PART A [facility] [id number] [place] Number: Repository [id number]: 330 [id number] [phone] () Date:2018-02-28 02/28/2018 Secondary KATHLEEN L [place] Insurance:[facility]: [facility] CARE [address] [place] [address] [id number] Hospital Number: Repository [id number] Date:9319-24-45XU [address], [place] [address]OM: 02/28/2018 Tertiary NOT GIVENUNK [place] Insurance:SELF PAY [facility] Number: Effective Repository Date:2018-02-28 02/07/2018 KATHLEEN L Primary KATHLEEN L [place] [id number] Insurance:MEDICARE [facility]B: [facility] [address] PART A [facility] [id number] [facility] [place] Number: Repository [id number]: 330 [id number] [phone] () Date:2017-06-27 02/07/2018 Secondary KATHLEEN L [place] Insurance:[facility] HAR[facility] HOSPITALGANDOB: [facility] CARE [id number] Hospital Number: Repository [id number] Date:7957-87-84DZ [address]GYJJ[place], [place] [address]RO: 02/07/2018 Tertiary NOT GIVENUNK [place] Insurance:SELF PAY [facility] Number: Effective Repository Date:2017-06-27 02/07/2018 KATHLEEN L Primary KATHLEEN L [place] [id number] Insurance:MEDICARE [facility]B: [facility] [address] PART A [facility] [id number] [facility] [place] Number: Repository [id number]: 330 [id number] [phone] (HP) Date:2018-02-07 02/07/2018 Secondary KATHLEEN L [place] Insurance:[facility] HOSPITALGANDOB: [facility] CARE [id number] Hospital Number: Repository [id number] Date:9462-13-64PG[address] [address]CW: 02/07/2018 Tertiary NOT GIVENUNK [place] Insurance:SELF PAY [facility] Number: Effective Repository Date:2018-02-07 02/06/2018 KATHLEEN L Primary KATHLEEN L [place] [id number] Insurance:[facility] HOSPITALGANDOB: [facility] [place] CARE [id number] Health [place] [facility] [place] Number: Repository [address]Tum: 330 [id number] [phone] (HP) Date:0056-02-22XB[address] [address]VL: 02/06/2018 Secondary NOT GIVENUNK [place] Insurance:SELF PAY [facility] Number: Effective Repository Date:2018-02-06 01/26/2018 KATHLEEN L Primary KATHLEEN L [place] [id number] Insurance:[facility]B: [facility] CARE [id number] [id number] [facility] [place] Number: Repository [address]Vjp: 330 [id number] [phone] (HP) Date:7510-14-94IY [address]UNUV[address] [place] [address]AC: 01/26/2018 Secondary KATHLEEN L [place] Insurance:MEDICARE FLANNAGANDOB: Community PART A [facility] [id number] Hospital Number: Repository [id number] Date:2018-01-26 01/26/2018 Tertiary NOT GIVENUNK [place] Insurance:SELF PAY [facility] Number: Effective Repository Date:2018-01-26
== END ==
PROVIDERS: Family Provider Family Medicine; PCP Family Medicine; Referring Provider Family Medicine; Visit Provider Family Medicine
DX: S76.012A Strain of muscle, fascia and tendon of left hip, initial encounter (principal)
CPT/HCPCS: 73502

== ENCOUNTER 2018-09-26 10:00 | Outpatient (RCR) | payer MEDICARE, OTHER, SELFPAY ==
--- NOTE | 2018-08-06 16:36 | HP.PTEVAL_ITS ---
Patient's Visit Information KATHLEEN ANGELA is a 68 year old M referred to Physical Therapy by Estefania Santana MD with a diagnosis of L hip pain. Date of Evaluation: 08/06/18 Physical Therapist: Iván Sahni PT, ATC - Visit Plan Frequency: 2-3x /Week Duration: 4-6 Weeks Plan: L LE stretching abd strengthening, balance and proprio, core stab ex's, bike, and HEP - Subjective Findings: Pt reports he was cleaning out his gutters at the end of May. Pt reports after that, he began to experience L gluteal pain. Pt reports he has had a cortisone injection and been taking OTC meds, but nothing has helped his pain up to this point. Pt reports his pain is located mostly in the L glute region. Pt reports this makes him have difficulty with sleep, as well as difficulty performing car transfers. Pt reports no LBP at this time, but notes he does have DDD in L/S. Pt reports he has had xrays which revealed spurs throughout his L hip. Pt reports he has to negotiate stairs one at a time. - Pain L gluteal regions Pain Intensity (Out of 10): 1 Pain Intensity Range: 8 - Objective Neuro: B LE sensation is WNL to light touch.. B patellar reflex= 2/3. Palpation: No pain or noteable deformity with deep palpation of the L hip. ROM: B hips are WFL. MMT: B LE's are grossly 4+/5 throughout. Special tests: p ositive quadrant test - Goals Goal 1:: Decrease L hip pain x 50% to aid with sleep Goal Time Frame: 4-6 Weeks Goal 2:: Increase L hip strength x 1 grade to aid with car transfers Goal Time Frame: 4-6 Weeks Goal 3:: I with HEP Goal Time Frame: 4-6 Weeks - Rehabilitation Potential Physical Therapy Diagnosis: L hip pain, weakness, and difficulty with car transfers secondary to deg changes in L hip Rehabilitation Potential: Good - Anticipated Interventions Patient/Client Instruction: Educate patient on: Condition, Plan of Care For the Purpose of:: To improve self management Therapeutic Exercise to Include: Strength training, Endurance training, Balance training, Flexibilty training, Active ROM, Dynamic Lumbar Stabilization For the Purpose of:: To decrease pain, To increase ROM, To improve muscle performance and motor function Cryotherapy (ice pack, ice massage): Yes For the Purpose of:: To decrease pain Thank you for the opportunity to evaluate your patient. For Medicare and Medicare HMO plans, please review the plan of care and approve it. It will need to be FAXED BACK to us at [phone] for Medicare purposes. For Medicare only, by signing this I certify the plan of care. Please let me know if there are questions or concerns regarding this plan of care. Physician Signature: Date:
--- NOTE | 2018-08-31 12:22 | HP.PTREVAL ---
Estefania Santana MD, It has been my pleasure to treat KATHLEEN ANGELA over the last 7 visits for L hip pain. Please see the progress note below for an update on the physical therapy plan of care! Subjective: Pt notes he is getting better, but reports he feels like he needs more. Objective/Function: Pt still has minor pain with car and shower transfers. L hip strength is grossly 4/5 throughout. Pt is progressing well toward Rx goals. Plan Plan: Cont to progress as tolerated 2 x's per week for 2 weeks Goals Goal 1:: Decrease L hip pain x 50% to aid with sleep Goal Time Frame: 4-6 Weeks Goal Progress: Progressing Goal 2:: Increase L hip strength x 1 grade to aid with car transfers Goal Time Frame: 4-6 Weeks Goal Progress: Progressing Goal 3:: I with HEP Goal Time Frame: 4-6 Weeks Goal Progress: Progressing Anticipated Interventions Patient/Client Instruction: Educate patient on: Condition, Plan of Care For the Purpose of:: To improve self management Therapeutic Exercise to Include: Strength training, Endurance training, Balance training, Flexibilty training, Active ROM, Dynamic Lumbar Stabilization For the Purpose of:: To decrease pain, To increase ROM, To improve muscle performance and motor function Cryotherapy (ice pack, ice massage): Yes For the Purpose of:: To decrease pain Please do not hesitate to contact me at [phone] by phone or if you have questions or concerns regarding this new plan of care! Sincerely, Iván Sahni, PT, ATC
--- NOTE | 2018-08-31 12:26 | HP.PTREVAL_ITS ---
Estefania Santana MD, It has been my pleasure to treat KATHLEEN ANGELA over the last 7 visits for L hip pain. Please see the progress note below for an update on the physical therapy plan of care! Subjective: Pt notes he is getting better, but reports he feels like he needs more. Objective/Function: Pt still has minor pain with car and shower transfers. L hip strength is grossly 4/5 throughout. Pt is progressing well toward Rx goals. Plan Plan: Cont to progress as tolerated 2 x's per week for 2 weeks Goals Goal 1:: Decrease L hip pain x 50% to aid with sleep Goal Time Frame: 4-6 Weeks Goal Progress: Progressing Goal 2:: Increase L hip strength x 1 grade to aid with car transfers Goal Time Frame: 4-6 Weeks Goal Progress: Progressing Goal 3:: I with HEP Goal Time Frame: 4-6 Weeks Goal Progress: Progressing Anticipated Interventions Patient/Client Instruction: Educate patient on: Condition, Plan of Care For the Purpose of:: To improve self management Therapeutic Exercise to Include: Strength training, Endurance training, Balance training, Flexibilty training, Active ROM, Dynamic Lumbar Stabilization For the Purpose of:: To decrease pain, To increase ROM, To improve muscle performance and motor function Cryotherapy (ice pack, ice massage): Yes For the Purpose of:: To decrease pain Please do not hesitate to contact me at [phone] by phone or if you have questions or concerns regarding this new plan of care! Sincerely, Iván Sahni, PT, ATC
--- NOTE | 2018-09-26 10:53 | HP.PTDCSUM ---
HP - PT D/C Summary It has been my pleasure to treat KATHLEEN ANGELA under orders from Estefania Santana MD, for the diagnosis of L hip pain for a total of 12 visit(s). Discharge Date: Please see the following information for a summary of their discharge status. - Subjective Subjective: Pt reports he is ready for discharge - Pain L gluteal regions Pain Intensity (Out of 10): 1 - Overall Improvement % Improvement: 90 - Objective Objective/Function: L hip pain 0-10. L LE MMT 5/5 throughout. I with HEP. Pt has achieved all goals - Goals Goal 1:: Decrease L hip pain x 50% to aid with sleep Goal Progress: Goal Met Goal 2:: Increase L hip strength x 1 grade to aid with car transfers Goal Progress: Goal Met Goal 3:: I with HEP Goal Progress: Goal Met - Plan Plan: Discharge - D/C Information If there are questions or concerns regarding this patient's physical therapy, please feel free to call me at [phone]. Thank you for the referral of this patient. Sincerely, Iván Sahni, PT, ATC
== END 2018-09-26 11:02 | disposition home or self-care (01) ==
LOC: PT 10:00
PROVIDERS: Family Provider Family Medicine; PCP Family Medicine; Referring Provider Family Medicine; Visit Provider Family Medicine
DX: S76.011D Strain of muscle, fascia and tendon of right hip, subsequent encounter (principal); S76.312D Strain of muscle, fascia and tendon of the posterior muscle group at thigh level, left thigh, subsequent encounter
CPT/HCPCS: 97110; 97161; 97530

== ENCOUNTER → 2019-01-08 | Outpatient (CLI) | payer MEDICARE, OTHER, SELFPAY ==
[2019-01-08 12:37] LABS: AST(SGOT) 24 U/L (15-37); Alanine Aminotransfer ALT/SGPT 41 U/L (16-61); Anion Gap 5 (5-15); BUN 24 mg/dL (7-18); BUN/Creat Ratio 22.9 RATIO (10-20); Calcium,Total 9.6 mg/dL (8.5-10.1); Chloride 107 mmol/L (98-107); Cholesterol 169 mg/dL (200); Creatinine, Serum 1.05 mg/dL (0.70-1.30); EST Glomerular Filtration Rate 74 mL/min (>60); Est Glom Filt Rate - Afr Amer 90 mL/min (>60); Glucose 110 mg/dL (74-106); High Density Lipoprotein 36 mg/dL; Potassium 4.7 mmol/L (3.5-5.1); Sodium Level 141 mmol/L (136-145); Triglycerides 148 mg/dL; Very Low Density Lipoprotein 30 mg/dL (5-40)
== END | disposition home or self-care (01) ==
LOC: MFPLAB 10:38
PROVIDERS: Family Provider Family Medicine; PCP Family Medicine; Referring Provider Family Medicine; Visit Provider Family Medicine
DX: E78.00 Pure hypercholesterolemia, unspecified (principal); I10 Essential (primary) hypertension
CPT/HCPCS: 36415; 80048; 80061; 84450; 84460

== ENCOUNTER → 2019-06-27 11:49 | Outpatient (CLI) | payer MEDICARE, OTHER, SELFPAY | PROVIDERS: Referring Provider Urology; Visit Provider Urology | DX: Z12.5 Encounter for screening for malignant neoplasm of prostate (principal) | CPT/HCPCS: 36415; 84153; G0103 ==

== ENCOUNTER → 2020-07-30 11:47 | Outpatient (CLI) | payer MEDICARE, OTHER, SELFPAY ==
[2020-07-30 13:03] LABS: PSA,Total - Annual Screen 0.14 ng/mL (0.00-4.00)
== END ==
PROVIDERS: Referring Provider Urology; Visit Provider Urology
DX: Z12.5 Encounter for screening for malignant neoplasm of prostate (principal)
CPT/HCPCS: 36415; 84153; G0103

== ENCOUNTER 2021-08-17 14:46 | Outpatient (CLI) | payer MEDICARE, OTHER, SELFPAY ==
[2021-08-17 17:34] LABS: PSA,Total - Annual Screen 0.15 ng/mL (0.00-4.00)
== END 2021-08-17 23:59 | disposition home or self-care (01) ==
LOC: LAB 14:48
PROVIDERS: Visit Provider Urology
DX: Z12.5 Encounter for screening for malignant neoplasm of prostate (principal)
CPT/HCPCS: 36415; 84153; G0103

== ENCOUNTER → 2022-08-23 | Outpatient (CLI) | payer MEDICARE, OTHER, SELFPAY | END | disposition home or self-care (01) | LOC: LAB 11:19 | PROVIDERS: Visit Provider Registered Nurse | DX: Z12.5 Encounter for screening for malignant neoplasm of prostate (principal) | CPT/HCPCS: 36415; 84153; G0103 ==

== ENCOUNTER → 2024-04-08 | Outpatient (CLI) | payer MEDICARE, OTHER, SELFPAY | END | disposition home or self-care (01) | LOC: LAB 10:39 | PROVIDERS: Referring Provider Urology; Visit Provider Urology | DX: Z12.5 Encounter for screening for malignant neoplasm of prostate (principal) ==

== ENCOUNTER → 2025-04-10 | Outpatient (CLI) | payer MEDICARE, OTHER, SELFPAY ==
[2025-04-10 17:25] LABS: PSA,Total - Annual Screen < 0.02 ng/mL (0.02-4.00)
== END | disposition home or self-care (01) ==
LOC: LAB 16:03
PROVIDERS: Referring Provider Urology; Visit Provider Urology
DX: Z12.5 Encounter for screening for malignant neoplasm of prostate (principal)
CPT/HCPCS: 36415; 84153; G0103